=== PATIENT | female | born 1950 | race Caucasian/White ===

== ENCOUNTER → 2023-09-18 15:54 | Outpatient (REF) | payer MEDICARE, SELFPAY | LOC: HWRCS 15:54 | PROVIDERS: ATTENDING PHYSICIAN Internal Medicine Cardiovascular Disease; FAMILY PHYSICIAN Family Medicine | DX: I44.7 Left bundle-branch block, unspecified (principal); R00.2 Palpitations; I10 Essential (primary) hypertension | CPT/HCPCS: 93306 ==

== ENCOUNTER 2024-05-05 07:13 | Outpatient (RCR) | payer MEDICARE, SELFPAY | END 2024-05-05 23:59 | disposition home or self-care (01) | LOC: ROT 07:13 | PROVIDERS: ATTENDING PHYSICIAN Orthopaedic Surgery; FAMILY PHYSICIAN Family Medicine | DX: Z47.89 Encounter for other orthopedic aftercare (principal); M65.322 Trigger finger, left index finger; Z73.6 Limitation of activities due to disability | CPT/HCPCS: 97018; 97110; 97140; 97166; 97535 ==

== ENCOUNTER 2024-10-19 20:33 | Observation (INO) | payer MEDICARE, SELFPAY ==
[2024-10-19] VITALS (13 sets, daily range): BP systolic 121–155; BP diastolic 31–91; PULSE 63–66; BMI 36.3; BMI 34.8
[2024-10-19 13:54] LABS: % Basophils 0.9 % (0-2); % Eosinophils 2.8 % (0-6); % Immature Granulocytes 0.2 % (0-0.5); % Lymphocytes 48.6 % (20.5-51.1); % Monocytes 6.8 % (1.7-9.3); % Neutrophils 40.7 % (42.2-75.2); Absolute Basophils 0.1 10^3/uL (0-0.2); Absolute Eosinophils 0.2 10^3/uL (0-0.7); Absolute Lymphocytes 3.1 10^3/uL (1.2-3.4); Absolute Monocytes 0.4 10^3/uL (0.1-0.6); Absolute Neutrophils 2.6 10^3/uL (1.4-6.5); Hematocrit 40.1 % (37.0-47.0); Hemoglobin 13.4 g/dL (12.0-16.0); Mean Corp Hgb Conc. 33.4 g/dL (33.0-37.0); Mean Corpuscular Hgb 29.1 pg (27.0-31.0); Mean Platelet Volume 10.3 fL (7.4-10.4); Nucleated Red Blood Cells % 0 %; Platelet Count 258 10^3/uL (130-400); Red Blood Cell Count 4.61 10^6/uL (4.20-5.40); White Blood Cell Count 6.3 10^3/uL (4.8-10.8)
[2024-10-19 14:20] LABS: ALT (SGPT) 35 U/L (0-35); AST (SGOT) 32 U/L (14-36); Albumin 4.1 g/dl (3.5-5.0); Alkaline Phosphatase 84 U/L (38-126); Blood Urea Nitrogen 19 mg/dl (7-17); Calcium 9.7 mg/dl (8.4-10.2); Carbon Dioxide 28 mmol/L (22-30); Chloride 107 mmol/L (98-107); Glucose 138 mg/dl (70-99); Potassium 4.2 mmol/L (3.5-5.1); Sodium 141 mmol/L (135-145); Total Bilirubin 0.5 mg/dl (0.2-1.3); Total Protein 6.6 g/dl (6.3-8.2); eGFR > 60.00
--- NOTE | 2024-10-19 15:33 | ED.GENMED ---
History of Present Illness
General
Chief Complaint: Dizziness
Source: patient
Exam Limitations: none
Time Seen by Provider: 10/19/24 15:31
Nursing documentation reviewed up to this point in time: agreed with
History of Present Illness
History of Present Illness:
The patient is a pleasant 73-year-old female the past medical history of [id number] diabetes and high blood pressure who comes in with complains of 2 weeks of her balance being off. Patient reports that today she felt extremely dizzy and
symptoms are worse than ever before. Patient reports that she has to use a cane to walk which is very unusual for her. She denies acute vision changes and headache. She denies any episodes of passing out. Patient denies weakness and numbness.
Patient reports she has had vertigo in the past but this does not feel like vertigo
Past History
Past History
ED Past Medical History: HTN and NIDDM
ED Past Surgical History: Orthopedic
Social History
Tobacco: Non-smoker
Alcohol: Other
Drug: None
Personal:
Living: with family
Employment: Other
Family History
Family History: Other
Review of Systems
Review of Systems
Allergies reviewed?: Yes
All Other Systems: ROS reviewed and negative except as documented in HPI and ROS
Constitutional: Reports no symptoms
EENT: Reports no symptoms
Respiratory: Reports no symptoms
Cardiac: Reports no symptoms
ABD/GI: Reports no symptoms
: Reports no symptoms
Musculoskeletal: Reports no symptoms
Neurological: Reports dizzy
Endocrine: Reports no symptoms
Hematologic/Lymphatic: Reports no symptoms
Psychiatric: Reports no symptoms
Phy Exam
Physical Exam
Physical Exam:
Physical Exam
General: no apparent distress, not acutely ill
Neck: supple. no meningeal signs. normal psoterior pharynx
Heart: s1/s2 regular rate and rhythm, no murmur. equal radial pulses.
Lungs: no acute respiratory distress. clear bilaterally
Abdomen: normal bowel sounds. not tender. no CVAT
Neuro: alert and oriented. no focal neurological deficits. Normal finger-nose. 5 out of 5 strength in all extremities. Extraocular muscles intact
Skin: no rash
Psychiatric: well kept. interactive and cooperative
Extremities: no edema. no calf tenderness. negative homans. good distal pulses
Course
Orders/Labs/Results
Orders:
Orders
10/19/24 13:16
Electrocardiogram (*1) Urgent
Reason for Study: Chest Pain
EKG- Treatment ONCE
10/19/24 13:26
Complete Blood Count/With Diff Urgent
Comprehensive Metabolic Panel Urgent
10/19/24 15:47
Troponin I Urgent
10/19/24 16:28
CT Head W/o Iv Contrast Urgent
Comment:
Reason For Exam: dizziness
10/19/24 18:16
Urinalysis Reflex To Culture Urgent
Date Specimen was Collected: 10/19/24
Time Specimen was Collected: 18:15
Abnormal Lab Results
10/19/24
13:26
Neutrophils % 40.7 L %
(42.2-75.2)
BUN 19 H mg/dl
(7-17)
Glucose 138 H mg/dl
(70-99)
10/19/24 13:26
10/19/24 13:26
Vital Signs
Initial and Last Documented VS:
Initial Vital Signs
Temp Pulse Resp BP Pulse Ox
97.9 F 67 18 138/83 98
10/19/24 13:15 10/19/24 13:15 10/19/24 13:15 10/19/24 13:15 10/19/24 13:15
Last Documented Vital Signs
Temp Pulse Resp BP Pulse Ox
97.9 F 62 18 133/62 97
10/19/24 13:15 10/19/24 17:45 10/19/24 17:45 10/19/24 17:30 10/19/24 17:45
MDM/Problems Addressed
Differential Diagnosis Includes:
Acute on chronic vertigo, acute CVA, orthostatic dizziness
MDM/Problems Addressed:
Patient presents with subacute dizziness
Chronic conditions affecting care:
Vertigo
Acute Exacerbation and/or Progression of Chronic Illness:
Patient may have acute exacerbation of chronic vertigo
*Radiology
Radiology exam reviewed: radiology read reviewed
*Pulse Oximetry
Patient hypoxic: no
Comment: 98% on room air
*EKG
Interpreted by ED Provider?: Yes
Interpretation: abnormal
Comparison EKG: no comparison EKG present
Rate: normal
Rhythm: sinus
[place]: left axis deviation
Interval: normal interval
QRS Pattern: left bundle branch block
Ischemia: non-specific ST changes
*Executive Advisor Interpretation
Rate: normal
Interpretation: normal
Rhythm: sinus
*Critical Care Note
Total Time (30-74mins, 75-104mins- exclusive of procedures): Not Applicable
Data Reviewed
Review of Other/Old Records Reveals: Testing (Normal cardiac echo 2023)
Source: patient
Patient Management
Social determinants of health affecting care: Living situation and Strong social support
Escalation/DeEscalation of care consider admission/obs:
Patient expresses that her balance is way off and she has to use a cane which is extremely unusual for her. She reports this feels different than her typical vertigo. Additionally, there is no sign of orthostatic vital sign changes. Therefore, I
am concerned about possible stroke.
ED Attending Note
-
Portions of this chart may have been created with voice recognition software.� Occasional wrong word or��sound alike� substitutions may have occurred due to the inherent limitations of voice recognition software.
Discharge Plan
Departure
Patient Disposition: Admit
Date of Disposition: 10/19/24
Time of Disposition: 18:29
Admit to: Telemetry
Presentation/result/management discussed w/ accepting MD/DO: Hospitalist
Patient with high blood pressure during this ER visit?: Yes
Condition: Good
Covid-19: Not Applicable
Discharge Problem:
Acute dizziness
Referrals:
Valery Sylvester DO [Family Provider, Family Practice]
Interventions
Interventions:
*Risk Screen - Suicide Last Done: 10/19/24 14:54
*General Assessment Last Done: 10/19/24 14:54
*Neglect/Abuse Screening Last Done: 10/19/24 14:54
*ED- Fall Risk Assessment Last Done: 10/19/24 14:54
*ED COVID-19 Vaccine History Last Done: 10/19/24 14:54
ED- Neurological Assessment Last Done: 10/19/24 14:54
Discharge Date and Time
Print Language: DANISH
[2024-10-19 16:21] LABS: Troponin I < 0.012 ng/ml
[2024-10-19 18:21] LABS: Urine Albumin Negative (Neg - Trace); Urine Bilirubin Negative (Negative); Urine Character Clear (Clear); Urine Color Yellow; Urine Glucose Negative (Negative); Urine Ketone Negative (Negative); Urine Leukocyte Negative (Negative); Urine Nitrite Negative (Negative); Urine Occult Blood Negative (Negative); Urine Urobilinogen Negative (Neg - 1+)
--- NOTE | 2024-10-19 20:02 | HPS.HSE ---
Family Physician
-
Family Physician: Valery Sylvester
Chief Complaint
-
vertigo
History of Present Illness
73-year-old female past medical history of vertigo, diabetes, hypertension, left bundle branch block, anxiety, bipolar disorder, hypothyroidism, presenting with 2 weeks of dizziness. She describes the feeling as dizziness rather than vertigo which
she has had in the past attributed to BPPV which responded to Mili maneuver.
She states that the dizziness comes on when she gets up or walks around. Does not have any symptoms when she is sitting down. She had a little bit worsening symptoms with head movements but this is improved. She describes a head fullness but
denies any headache. She has chronic double vision. Denies ringing in the ears. Denies new blurry vision.
She complains of some tingling in her knees bilaterally with ambulation. Denies weakness in the legs.
Denies any new medications.
Denies smoking. Alcohol history. Denies drugs.
Medical History
Past Medical History
Past Medical History: Reports Other (vertigo, diabetes, hypertension, left bundle brach block anxiety, bipolar disorder, hypothyroidism,)
Past Surgical History: Reports None
Social History
Tobacco: Non-smoker
Alcohol: None
Drug: None
Family History
Family History: Not pertinent
Allergies / Home Medications
Allergies reflects when Allergies were last updated in [facility].
Home Medications with original date entered in [facility]
Allergy/Medication List:
Allergies
Allergy/AdvReac Type Severity Reaction Status Date / Time
No Known Allergies Allergy Unverified 12/08/22 22:09
Home Medications
ascorbic acid (vitamin C) 1,000 mg tablet 1,000 mg PO DAILY 10/19/24
aspirin 81 mg tablet 81 mg PO DAILY 10/19/24
calcium carbonate (Calcium 600) 600 mg PO DAILY 10/19/24
ezetimibe 10 mg tablet 10 mg PO DAILY 10/19/24
hydrochlorothiazide 50 mg tablet 50 mg PO DAILY 10/19/24
hydroxyzine pamoate 50 mg capsule 100 mg PO HS 10/19/24
lamotrigine 25 mg tablet 25 mg PO BID 10/19/24
levothyroxine 100 mcg tablet 100 mcg PO DAILY 10/19/24
melatonin 5 mg tablet 10 mg PO HS 10/19/24
metformin 500 mg tablet,extended release 24 hr 500 mg PO DAILY 10/19/24
metoprolol succinate 25 mg tablet,extended release 24 hr 25 mg PO DAILY 10/19/24
omega 8-nxa-ljf-fish oil 1,200 mg (144 mg-216 mg) capsule (Fish Oil) 1 cap PO DAILY 10/19/24
omeprazole 20 mg capsule,delayed release 20 mg PO DAILY 10/19/24
polyethylene glycol 3350 17 gram oral powder packet 17 g PO DAILY 10/19/24
quetiapine 400 mg tablet 400 mg PO HS 10/19/24
rosuvastatin 40 mg tablet 40 mg PO HS 10/19/24
therapeutic multivitamin 1 tab PO DAILY 10/19/24
trazodone 100 mg tablet 100 mg PO HS 10/19/24
Review of Systems
-
History Source: Patient
A 12 point ROS was completed and negative except as noted: Yes
Constitutional: Reports No Symptoms
EENT: Reports No Symptoms
Respiratory: Reports No Symptoms
Cardiac: Reports No Symptoms
Abdomen/GI: Reports No Symptoms
: Reports No Symptoms
Musculoskeletal: Reports No Symptoms
Skin: Reports No Symptoms
Neurological: Reports See HPI
Endocrine: Reports No Symptoms
Hematologic/Lymphatic: Reports No Symptoms
Psych: Reports No Symptoms
Physical Exam
Vital Signs
Vital Signs
Temp Pulse Resp BP Pulse Ox
98.1 F 63 20 141/31 98
10/19/24 19:33 10/19/24 19:33 10/19/24 19:33 10/19/24 19:33 10/19/24 19:33
Physical Exam
General: Well Developed, Well Nourished and No Apparent Distress
HEENT: NormoCephalic, Moist mucous membranes and Atraumatic
Respiratory: Clear
Cardiac: S1/S2 and Regular Rhythm; No Murmur or Rub
GI: Soft, Non Tender, Non Distended and Normal Bowel Sounds; No Organomegaly
Rectal: Deferred by Provider
Musculoskeletal: No Clubbing, No Cyanosis and No Edema
Skin: No Rash
Neuro: Nonfocal/grossly intact
Laboratory Results
-
10/19/24 13:26
10/19/24 13:26
Laboratory Results
Total Bilirubin 0.5 mg/dl (0.2-1.3) 10/19/24 13:26
AST 32 U/L (14-36) 10/19/24 13:26
ALT 35 U/L (0-35) 10/19/24 13:26
Alkaline Phosphatase 84 U/L (38-126) 10/19/24 13:26
Troponin I < 0.012 ng/ml 10/19/24 15:47
Data Reviewed
-
Lab Data: Labs Reviewed by me
Old Records: Reviewed
Impression/Plan
-
IMPRESSION:
PLAN:
# Disequilibrium suspect peripheral vertigo
-Patient has nystagmus with rightward gaze suggesting peripheral vertigo as the etiology
- CT head shows no acute abnormality
-EKG shows normal sinus rhythm, left bundle branch block,
- Urinalysis unremarkable
-Orthostatic vital signs negative
- Check TSH, B12,
-Check MRI brain
- Meclizine as needed
- Vestibular therapy
- Neurology
Type 2 diabetes
- Continue metformin
Essential hypertension
- Continue metoprolol, hydrochlorothiazide
Left bundle branch block
Anxiety/bipolar disorder
- Continue Lamictal, Seroquel, hydroxyzine
Hypercholesterolemia
- Continue statin, Zetia
Hypothyroidism
- Continue levothyroxine
Insomnia
- Continue trazodone,
Full code
DVT prophylaxis�SCDs
Regular diet
--- NOTE | 2024-10-19 22:00 | PTCARENOTE ---
Received patient from ED via stretcher. Patient ambulated from stretcher to bed x2 assist. AAOx3, reports dizziness at times when OOB. Denies pain. Oriented patient to room and placed call villagomez within reach.
[2024-10-19] MEDS: MELATONIN 10 MG PO (22:52)
[2024-10-19] MEDS: CRESTOR 40 MG PO (22:53)
[2024-10-19] MEDS: DESYREL 100 MG PO (22:53)
[2024-10-19] MEDS: ATARAX 50 MG PO (22:53)
[2024-10-19] MEDS: SEROQUEL 400 MG PO (22:54)
[2024-10-20] VITALS (7 sets, daily range): BP systolic 114–142; BP diastolic 41–66; PULSE 67
[2024-10-20 00:02] LABS: TSH 0.12 uIU/ml (0.47-4.68)
[2024-10-20 00:21] LABS: Vitamin B12 586 pg/ml (239-931)
[2024-10-20 03:53] LABS: Amphetamines Negative (Negative); Barbiturates Negative (Negative); Benzodiazepines Negative (Negative); Buprenorphine Negative (Negative); Cocaine Negative (Negative); Marijuana Negative (Negative); Methadone Negative (Negative); Methamphetamines Negative (Negative); Opiates Negative (Negative); Phencyclidine Negative (Negative); Tricyclic Antidepressants Positive (Negative)
[2024-10-20] MEDS: PROTONIX 40 MG PO (06:21)
[2024-10-20] MEDS: SYNTHROID 100 MCG PO (06:21)
--- NOTE | 2024-10-20 07:10 | CON.NEURO ---
Consultation
Order
Date of Consultation: 10/20/24
Requesting Provider: Sj Prado MD
Reason for Consult: Disequilibrium
Neurology Consultation Note.
HPI: This is a 73-year-old right-handed woman who presented to [facility] on 10/19/2024 with 2-week history of imbalance.
The patient reports feeling very dizzy when getting up and walking around, with a sensation of her head feeling 'stuffed with cotton' and a fear of falling.
The symptoms are worse with standing up, turning and ambulation.
Within the last two months, Ms. Coto has fallen three times due to imbalance, including stumbling in bedclothes and falling while getting up at night. Each fall resulted in head trauma with no loss of consciousness. No reports No reports of
abnormal movements, headaches, fever, nasal congestion, ear pain sensory symptoms in the feet, cognitive symptoms. She started using a cane over the last 2 weeks due to imbalance. No recently started to discontinued medications
Ms. Coto reports a long-standing history of double vision, which she attributes to a fall in [place] where she hit her head. She currently uses prism glasses.
ER VS: 138/83-155/59, 67, afebrile
EKG: NSR, QTc Int : 482 ms
PDMP:none
Labs: Glucose�132, normal hemoglobin, WBCs.
CT head wo contrast�unremarkable
Brain MRI without gadolinium (10/20/2024)�no acute abnormalities.
PMH: HTN, DLP, DM, hypothyroidism, BPPV, bipolar disorder, insomnia
PSH: Trigger finger surgeries, lumbar laminectomy, bilateral CTS,
SH: , has 2 children, independent in ADLs, former smoker, no history of excessive alcohol use; former head of ict and teacher, currently works as a retail operations specialist
FH: Mother�mood disorder, father�rectal cancer
All:NKDA
ROS: Constitutional: Negative. Negative for chills, fever and unexpected weight change.
HENT: Positive for tinnitus
Eyes: Positive for chronic diplopia
Respiratory: Negative for cough, choking and shortness of breath.
Cardiovascular: Negative for chest pain, palpitations and leg swelling.
Gastrointestinal: Negative for abdominal pain and vomiting.
Endocrine: Negative. Negative for cold intolerance.
Genitourinary: Negative for dysuria, flank pain and urgency.
Musculoskeletal: Negative for back pain, gait problem, neck pain and neck stiffness.
Skin: Negative for rash.
Allergic/Immunologic: Negative. Negative for immunocompromised state.
Neurological: Positive for falls, imbalance, dizziness
Psychiatric/Behavioral: Positive for intermittent insomnia
General: Well developed. In no acute distress.
Cardio: Regular rate and rhythm without murmur. Extremities are without cyanosis or edema.
Neuro:
Mental Status: Alert, oriented to person, place, and date. Normal attention and recall. Good fund of knowledge. Follows complex requests across the midline. Comprehension, naming, and repetition intact. Immediate recall 3/3.
Cranial Nerves: Pupils are equally round and reactive to light. EOMs full. Visual carson full to confrontation. No ptosis. No nystagmus. V1-V3 intact to light touch and pinprick bilaterally, symmetric. Face symmetric. Normal hearing AU. The
palate elevated well. SCMs and traps 5/5. Tongue midline. No dysarthria.
Motor: Normal bulk and tone. No pronator or arm drift. Strength 5/5 throughout. No clonus.
Reflexes: 1+ throughout the upper extremities and trace knees. Plantar responses flexor bilaterally.
Sensory: Normal vibration at toes
Coordination: No dysmetria or tremor.
Gait: deferred
Assessment and Plan:
I. Probable BPPV
II Chronic diplopia, likely posttraumatic.
III. HTN
-Continue Telemetry monitoring
-Strict blood pressure control
-Please obtain orthostatic vital sign
-Meclizine 25 mg every 8 hours as needed
-ENT consult (can be done as outpatient)
-PT.
-DVT prophylaxis.
-Please recall neurology service with any questions or concerns
I personally reviewed all radiology and labs along with past medical records pertinent to current medical problems. Total time spent in patient care is 60 minutes.
Thank you for allowing us to participate in the care of this patient. We will continue to follow. Please do not hesitate to contact us with any questions or concerns.
Subjective/Objective
Subjective Data
Date of Service: October 20, 2024
Objective Data
Vital Signs
Temp Pulse Resp BP Pulse Ox
36.8 C 66 18 142/59 95
10/20/24 03:21 10/20/24 03:21 10/20/24 03:21 10/20/24 03:21 10/20/24 03:21
Sodium 141 mmol/L (135-145) 10/19/24 13:26
Potassium 4.2 mmol/L (3.5-5.1) 10/19/24 13:26
BUN 19 mg/dl (7-17) H 10/19/24 13:26
Glucose 138 mg/dl (70-99) H 10/19/24 13:26
Calcium 9.7 mg/dl (8.4-10.2) 10/19/24 13:26
Vitamin B12 586 pg/ml (239-931) 10/19/24 13:26
Ur Buprenorphine Negative (Negative) 10/20/24 03:35
Patient Allergies
No Known Allergies Allergy (Unverified 12/08/22 22:09)
Medications
-
Active Medications
Generic Name Dose Route Start Last Admin
Trade Name Freq PRN Reason Stop Dose Admin
Ascorbic Acid 1,000 mg 10/20/24 08:00
Ascorbic Acid 500 Mg Tablet PO 11/17/24 07:59
DAILY TORSTEN
Aspirin 81 mg 10/20/24 08:00
Aspirin 81 Mg (Enteric Coated) Tablet PO 11/17/24 07:59
DAILY TORSTEN
Calcium Carbonate 500 mg 10/20/24 08:00
Calcium Carbonate 500 Mg Tablet PO 11/17/24 07:59
DAILY TORSTEN
Ezetimibe 10 mg 10/20/24 08:00
Ezetimibe (Zetia) 10 Mg Tablet PO 11/17/24 07:59
DAILY TORSTEN
Hydrochlorothiazide 50 mg 10/20/24 08:00
Hydrochlorothiazide 50 Mg Tablet PO 11/17/24 07:59
DAILY TORSTEN
Hydroxyzine HCl 50 mg 10/19/24 23:00 10/19/24 22:53
Hydroxyzine 25 Mg Tablet PO 11/16/24 22:59 50 mg
HS TORSTEN Administration
Lamotrigine 25 mg 10/20/24 08:00
Lamotrigine 25 Mg Chewable Tablet PO 11/17/24 07:59
BID TORSTEN
Levothyroxine Sodium 100 mcg 10/20/24 06:00 10/20/24 06:21
Levothyroxine 100 Mcg Tablet PO 11/17/24 05:59 100 mcg
DAILY@0600 TORSTEN Administration
Meclizine HCl 12.5 mg 10/19/24 21:27
Meclizine 12.5 Mg Tablet PO 11/16/24 21:26
Q8HPRN PRN
vetigo
Melatonin 10 mg 10/19/24 22:00 10/19/24 22:52
Melatonin 5 Mg Tablet PO 11/16/24 21:59 10 mg
HS TORSTEN Administration
Metformin HCl 500 mg 10/20/24 08:00
Metformin 500 Mg Extended Release Tablet PO 11/17/24 07:59
DAILY TORSTEN
Metoprolol Succinate 25 mg 10/20/24 08:00
Metoprolol 25 Mg Extended Release Tablet PO 11/17/24 07:59
DAILY TORSTEN
Multivitamins Therapeutic 1 tablet 10/20/24 08:00
Multivitamin Tablet PO 11/17/24 07:59
DAILY TORSTEN
Pantoprazole Sodium 40 mg 10/20/24 07:00 10/20/24 06:21
Pantoprazole 40 Mg Delayed Release Tablet PO 11/17/24 06:59 40 mg
DAILY AT 0700 TORSTEN Administration
Polyethylene Glycol 17 grams 10/20/24 08:00
Polyethylene Glycol Powder 17 Grams Packet PO 11/17/24 07:59
DAILY TORSTEN
Quetiapine Fumarate 400 mg 10/19/24 22:00 10/19/24 22:54
Quetiapine 100 Mg Tablet PO 11/16/24 21:59 400 mg
HS TORSTEN Administration
Rosuvastatin Calcium 40 mg 10/19/24 22:00 10/19/24 22:53
Rosuvastatin (Crestor) 40 Mg Tablet PO 11/16/24 21:59 40 mg
HS TORSTEN Administration
Sodium Chloride 0 flush 10/19/24 23:00
Sodium Chloride 0.9% (Flush) Syringe IV 11/16/24 22:59
PER PROTOCOL TORSTEN
Trazodone HCl 100 mg 10/19/24 22:00 10/19/24 22:53
Trazodone 100 Mg Tablet PO 11/16/24 21:59 100 mg
HS TORSTEN Administration
Home Medications
�Medication �Instructions �Recorded
ascorbic acid (vitamin C) 1,000 mg 1,000 mg PO DAILY 10/19/24
tablet
aspirin 81 mg tablet 81 mg PO DAILY 10/19/24
calcium carbonate (Calcium 600) 600 mg PO DAILY 10/19/24
ezetimibe 10 mg tablet 10 mg PO DAILY 10/19/24
hydrochlorothiazide 50 mg tablet 50 mg PO DAILY 10/19/24
hydroxyzine pamoate 50 mg capsule 50 mg PO HS 10/19/24
lamotrigine 25 mg tablet 25 mg PO BID 10/19/24
levothyroxine 100 mcg tablet 100 mcg PO DAILY 10/19/24
melatonin 5 mg tablet 10 mg PO HS 10/19/24
metformin 500 mg tablet,extended 500 mg PO DAILY 10/19/24
release 24 hr
metoprolol succinate 25 mg 25 mg PO DAILY 10/19/24
tablet,extended release 24 hr
omega 6-oot-yhh-fish oil 1,200 mg 1 cap PO DAILY 10/19/24
(144 mg-216 mg) capsule (Fish Oil)
omeprazole 20 mg capsule,delayed 20 mg PO DAILY 10/19/24
release
polyethylene glycol 3350 17 gram 17 g PO DAILY 10/19/24
oral powder packet
quetiapine 400 mg tablet 400 mg PO HS 10/19/24
rosuvastatin 40 mg tablet 40 mg PO HS 10/19/24
therapeutic multivitamin 1 tab PO DAILY 10/19/24
trazodone 100 mg tablet 100 mg PO HS 10/19/24
Vital Signs and Labs
-
Vital Signs and Labs:
Vital Signs
Temp Pulse Resp BP Pulse Ox
36.5 C 60 18 114/41 96
10/20/24 08:25 10/20/24 08:52 10/20/24 08:25 10/20/24 08:52 10/20/24 09:58
Lab Results
10/20/24 06:53
10/20/24 06:53
Sodium 141 mmol/L (135-145) 10/20/24 06:53
Potassium 3.9 mmol/L (3.5-5.1) 10/20/24 06:53
BUN 18 mg/dl (7-17) H 10/20/24 06:53
Glucose 132 mg/dl (70-99) H 10/20/24 06:53
Calcium 9.7 mg/dl (8.4-10.2) 10/20/24 06:53
Vitamin B12 586 pg/ml (239-931) 10/19/24 13:26
Ur Buprenorphine Negative (Negative) 10/20/24 03:35
Medications
-
Medications:
Generic Name Dose Route Start Last Admin
Trade Name Freq PRN Reason Stop Dose Admin
Ascorbic Acid 1,000 mg 10/20/24 08:00 10/20/24 08:52
Ascorbic Acid 500 Mg Tablet PO 11/17/24 07:59 1,000 mg
DAILY TORSTEN Administration
Aspirin 81 mg 10/20/24 08:00 10/20/24 08:52
Aspirin 81 Mg (Enteric Coated) Tablet PO 11/17/24 07:59 81 mg
DAILY TORSTEN Administration
Calcium Carbonate 500 mg 10/20/24 08:00 10/20/24 08:53
Calcium Carbonate 500 Mg Tablet PO 11/17/24 07:59 500 mg
DAILY TORSTEN Administration
Ezetimibe 10 mg 10/20/24 08:00 10/20/24 08:52
Ezetimibe (Zetia) 10 Mg Tablet PO 11/17/24 07:59 10 mg
DAILY TORSTEN Administration
Hydrochlorothiazide 50 mg 10/20/24 08:00 10/20/24 08:53
Hydrochlorothiazide 50 Mg Tablet PO 11/17/24 07:59 50 mg
DAILY TORSTEN Administration
Hydroxyzine HCl 50 mg 10/19/24 23:00 10/19/24 22:53
Hydroxyzine 25 Mg Tablet PO 11/16/24 22:59 50 mg
HS TORSTEN Administration
Lamotrigine 25 mg 10/20/24 08:00 10/20/24 08:52
Lamotrigine 25 Mg Chewable Tablet PO 11/17/24 07:59 25 mg
BID TORSTEN Administration
Levothyroxine Sodium 100 mcg 10/20/24 06:00 10/20/24 06:21
Levothyroxine 100 Mcg Tablet PO 11/17/24 05:59 100 mcg
DAILY@0600 TORSTEN Administration
Meclizine HCl 12.5 mg 10/19/24 21:27 10/20/24 08:52
Meclizine 12.5 Mg Tablet PO 11/16/24 21:26 12.5 mg
Q8HPRN PRN Administration
vetigo
Melatonin 10 mg 10/19/24 22:00 10/19/24 22:52
Melatonin 5 Mg Tablet PO 11/16/24 21:59 10 mg
HS TORSTEN Administration
Metformin HCl 500 mg 10/20/24 08:00 10/20/24 08:52
Metformin 500 Mg Extended Release Tablet PO 11/17/24 07:59 500 mg
DAILY TORSTEN Administration
Metoprolol Succinate 25 mg 10/20/24 08:00 10/20/24 08:52
Metoprolol 25 Mg Extended Release Tablet PO 11/17/24 07:59 25 mg
DAILY TORSTEN Administration
Multivitamins Therapeutic 1 tablet 10/20/24 08:00 10/20/24 08:52
Multivitamin Tablet PO 11/17/24 07:59 1 tablet
DAILY TORSTEN Administration
Pantoprazole Sodium 40 mg 10/20/24 07:00 10/20/24 06:21
Pantoprazole 40 Mg Delayed Release Tablet PO 11/17/24 06:59 40 mg
DAILY AT 0700 TORSTEN Administration
Polyethylene Glycol 17 grams 10/20/24 08:00 10/20/24 08:50
Polyethylene Glycol Powder 17 Grams Packet PO 11/17/24 07:59 Not Given
DAILY TORSTEN
Quetiapine Fumarate 400 mg 10/19/24 22:00 10/19/24 22:54
Quetiapine 100 Mg Tablet PO 11/16/24 21:59 400 mg
HS TORSTEN Administration
Rosuvastatin Calcium 40 mg 10/19/24 22:00 10/19/24 22:53
Rosuvastatin (Crestor) 40 Mg Tablet PO 11/16/24 21:59 40 mg
HS TORSTEN Administration
Sodium Chloride 0 flush 10/19/24 23:00
Sodium Chloride 0.9% (Flush) Syringe IV 11/16/24 22:59
PER PROTOCOL TORSTEN
Trazodone HCl 100 mg 10/19/24 22:00 10/19/24 22:53
Trazodone 100 Mg Tablet PO 11/16/24 21:59 100 mg
HS TORSTEN Administration
Home Medications
-
Home Medications
ascorbic acid (vitamin C) 1,000 mg tablet 1,000 mg PO DAILY 10/19/24
aspirin 81 mg tablet 81 mg PO DAILY 10/19/24
calcium carbonate (Calcium 600) 600 mg PO DAILY 10/19/24
ezetimibe 10 mg tablet 10 mg PO DAILY 10/19/24
hydrochlorothiazide 50 mg tablet 50 mg PO DAILY 10/19/24
hydroxyzine pamoate 50 mg capsule 50 mg PO HS 10/19/24
lamotrigine 25 mg tablet 25 mg PO BID 10/19/24
levothyroxine 100 mcg tablet 100 mcg PO DAILY 10/19/24
melatonin 5 mg tablet 10 mg PO HS 10/19/24
metformin 500 mg tablet,extended release 24 hr 500 mg PO DAILY 10/19/24
metoprolol succinate 25 mg tablet,extended release 24 hr 25 mg PO DAILY 10/19/24
omega 9-xza-kfq-fish oil 1,200 mg (144 mg-216 mg) capsule (Fish Oil) 1 cap PO DAILY 10/19/24
omeprazole 20 mg capsule,delayed release 20 mg PO DAILY 10/19/24
polyethylene glycol 3350 17 gram oral powder packet 17 g PO DAILY 10/19/24
quetiapine 400 mg tablet 400 mg PO HS 10/19/24
rosuvastatin 40 mg tablet 40 mg PO HS 10/19/24
therapeutic multivitamin 1 tab PO DAILY 10/19/24
trazodone 100 mg tablet 100 mg PO HS 10/19/24
[2024-10-20 07:28] LABS: % Basophils 0.8 % (0-2); % Eosinophils 2.9 % (0-6); % Immature Granulocytes 0.3 % (0-0.5); % Lymphocytes 49.9 % (20.5-51.1); % Monocytes 7.3 % (1.7-9.3); % Neutrophils 38.8 % (42.2-75.2); Absolute Basophils 0.1 10^3/uL (0-0.2); Absolute Eosinophils 0.2 10^3/uL (0-0.7); Absolute Lymphocytes 3.7 10^3/uL (1.2-3.4); Absolute Monocytes 0.5 10^3/uL (0.1-0.6); Absolute Neutrophils 2.9 10^3/uL (1.4-6.5); Hematocrit 39.1 % (37.0-47.0); Hemoglobin 13.2 g/dL (12.0-16.0); Mean Corp Hgb Conc. 33.8 g/dL (33.0-37.0); Mean Corpuscular Hgb 29.5 pg (27.0-31.0); Mean Corpuscular Volume 87.5 fL (81.0-99.0); Mean Platelet Volume 10.3 fL (7.4-10.4); Nucleated Red Blood Cells % 0 %; Platelet Count 244 10^3/uL (130-400); Red Blood Cell Count 4.47 10^6/uL (4.20-5.40); Red Cell Dist. Width 12.9 % (11.5-14.5); White Blood Cell Count 7.4 10^3/uL (4.8-10.8)
[2024-10-20 08:01] LABS: ALT (SGPT) 39 U/L (0-35); AST (SGOT) 34 U/L (14-36); Alkaline Phosphatase 90 U/L (38-126); Blood Urea Nitrogen 18 mg/dl (7-17); Calcium 9.7 mg/dl (8.4-10.2); Carbon Dioxide 29 mmol/L (22-30); Chloride 105 mmol/L (98-107); Creatine Phosphokinase 37 U/L (30-135); Estimated Creatinine Clearance 60 ml/min; Glucose 132 mg/dl (70-99); Potassium 3.9 mmol/L (3.5-5.1); Sodium 141 mmol/L (135-145); Total Bilirubin 0.5 mg/dl (0.2-1.3); Total Protein 6.6 g/dl (6.3-8.2); eGFR > 60.00
[2024-10-20] MEDS: MIRALAX PO (08:50)
[2024-10-20] MEDS: ANTIVERT 12.5 MG PO ×2 (08:52→22:38)
[2024-10-20] MEDS: GLUCOPHAGE XR EXTENDED RELEASE 500 MG PO (08:52)
[2024-10-20] MEDS: ASPIR LOW (ENTERIC COATED) 81 MG PO (08:52)
[2024-10-20] MEDS: ZETIA 10 MG PO (08:52)
[2024-10-20] MEDS: TOPROL XL 25 MG PO (08:52)
[2024-10-20] MEDS: THERAGRAN 1 TABLET PO (08:52)
[2024-10-20] MEDS: VITAMIN C 1000 MG PO (08:52)
[2024-10-20] MEDS: LAMICTAL 25 MG PO ×2 (08:52→19:56)
[2024-10-20] MEDS: OSCAL CAL 500 500 MG PO (08:53)
[2024-10-20] MEDS: ORETIC 50 MG PO (08:53)
--- NOTE | 2024-10-20 13:30 | CM ---
Patient seen bedside w/ spouse, initial assessment completed. Patient is a 73-year-old female past medical history of vertigo, diabetes, hypertension, left bundle branch block, anxiety, bipolar disorder, hypothyroidism, presenting with 2 weeks of
dizziness.
Patient resides w/ spouse and their adult daughter in a single story rancher style home, 1 step to enter. Patient was prev independent w/ ambulating, however, she shared the recent need of a cane due to vertigo. Has additional grab bar and shower
chair in the bathroom. Denies SNF/HC hx. Patient has engaged in OP therapy on and off for the past 3 years for vertigo. Patient not current as her current script expires this week.
Address, point of contact and insurance verified
PCP: Valery Sylvester
Pharmacy: [facility]
Patient admitted obs. DOSHI form verbally reviewed, copy provided, copy on chart
CM consulted for advanced directive, patient and spouse agreeable, paperwork provided
Therapy assessed patient, rec OP vertigo rehab/therapy at d/c. Patient will need script
Plan: Home w/ OP therapy
--- NOTE | 2024-10-20 13:37 | W.PN.HOSP.TC ---
Today's Communication/Plan
-
Assessment / Plan
Assessment / Plan
General: No Apparent Distress, Comfortable and Conversant
HEENT: NormoCephalic, Moist mucous membranes, Atraumatic
Respiratory: Clear and Non Labored Respirations
Cardiac: S1/S2 and Regular Rhythm; No Rub or Gallop
GI: Soft, Non Tender, Non Distended and Normal Bowel Sounds
Musculoskeletal: No Edema, no deformity
Skin: Warm and dry
: NO Maria
Neuro: Awake, Alert, Nonfocal/grossly intact, no nystagmus
Psych: Calm and Intact Judgment/Insight
Ms. Coto is a 73-year-old female with medical history of peripheral vertigo, bipolar disorder, LBBB, hypertension, and hypothyroidism who presented with 2 weeks of dizziness. She reports her current symptoms as feeling like her head is fuzzy and
full of cotton and she has trouble balancing, does not feel as if the room is spinning which has been the case with prior episode of vertigo which responded to Mili maneuver. Her symptoms are aggravated by standing and ambulating and resolve when
sitting or lying down. She denies headaches or hearing changes. She has chronic double vision for which she wears prism lenses. No acute vision changes. She has been admitted for further evaluation and management.
Dizziness:
- Received vestibular therapy including Mili maneuver this morning 10/20, does not appear to have nystagmus after therapy
- MRI brain shows no acute abnormality
- Will continue meclizine as needed
- To be evaluated by neurology
- Suspect presenting symptoms are due to peripheral vertigo in which case we will continue supportive care with meclizine and vestibular therapy
Mxf-xuahgjv-cpyreujgh diabetes mellitus:
- Continue home metformin
Hypertension:
- Continue HCTZ 50 mg daily and metoprolol succinate 25 mg daily
Hypothyroidism:
- Continue levothyroxine 100 mcg daily
Bipolar disorder:
- Stable
- Continue home Lamictal and Seroquel
DVT prophylaxis: SCDs
CODE STATUS: Full code
Total time spent on today's encounter was 35 minutes
Anticipated Discharge: 24 - 48 hours
Subjective/Interval History
-
Date of Service: October 20, 2024
Patient was seen and examined at bedside this morning. Mild dizziness after completing vestibular therapy. Awaiting MRI brain.
Objective Data
-
Labs:
Laboratory Results
10/20/24
06:53
WBC 7.4
Hgb 13.2
Hct 39.1
Plt Count 244
Sodium 141
Potassium 3.9
Chloride 105
Carbon Dioxide 29
BUN 18 H
Creatinine 0.8
Glucose 132 H
Calcium 9.7
Total Bilirubin 0.5
AST 34
ALT 39 H
Alkaline Phosphatase 90
Vital Signs:
Vital Signs
Temp Pulse Resp BP Pulse Ox
97.9 F 63 18 122/56 96
10/20/24 11:00 10/20/24 11:00 10/20/24 11:00 10/20/24 11:00 10/20/24 11:00
I&O
10/19/24 10/20/24 10/21/24
06:59 06:59 06:59
Intake Total 480 / 480
Output Total 350 / 350
Balance -350 / -350 480 / 480
Review of Systems
-
History Source: Patient
All other systems: Reviewed and negative
Neuro: Reports Dizzy
Physical Exam
-
General: No Apparent Distress
[2024-10-20] MEDS: CRESTOR 40 MG PO (19:53)
[2024-10-20] MEDS: ATARAX 50 MG PO (19:53)
[2024-10-20] MEDS: DESYREL 100 MG PO (19:53)
[2024-10-20] MEDS: MELATONIN 10 MG PO (19:55)
[2024-10-20] MEDS: SEROQUEL 400 MG PO (19:55)
[2024-10-20 22:08] LABS: Hepatitis C Antibody Negative (Negative)
[2024-10-21 03:45] VITALS: BP 135/56
[2024-10-21] MEDS: SYNTHROID 100 MCG PO (05:39)
[2024-10-21 07:50] VITALS: BP 132/50
[2024-10-21] MEDS: PROTONIX 40 MG PO (08:11)
[2024-10-21] MEDS: LAMICTAL 25 MG PO (08:11)
[2024-10-21] MEDS: TOPROL XL 25 MG PO (08:12)
[2024-10-21] MEDS: ORETIC 50 MG PO (08:12)
[2024-10-21] MEDS: ASPIR LOW (ENTERIC COATED) 81 MG PO (08:12)
[2024-10-21] MEDS: OSCAL CAL 500 500 MG PO (08:12)
[2024-10-21] MEDS: GLUCOPHAGE XR EXTENDED RELEASE 500 MG PO (08:12)
[2024-10-21] MEDS: ZETIA 10 MG PO (08:12)
[2024-10-21] MEDS: VITAMIN C 1000 MG PO (08:12)
[2024-10-21] MEDS: THERAGRAN 1 TABLET PO (08:12)
[2024-10-21] MEDS: MIRALAX 17 GRAMS PO (08:14)
[2024-10-21] MEDS: ANTIVERT 12.5 MG PO (08:19)
[2024-10-21 08:45] VITALS: BP 121/67; BP 138/57; BP 144/64; PULSE 66; PULSE 69; PULSE 72
[2024-10-21 11:35] VITALS: BP 125/65
--- NOTE | 2024-10-21 12:03 | CM ---
Per hospitalist, patient for d/c today.
Will need OP vestibular therapy, made hospitalist aware of script needed
No other CM needs identified at this time
Plan: Home w/ OP therapy
--- NOTE | 2024-10-21 12:09 | W.DCSUMMARY ---
Discharge Summary
Discharge Data
Date of Admission: 10/19/24
Date of Discharge: 10/21/24
Total time spent discharging patient (in min): 40
-
Pending Results: No
Hospital Course
Ms. Coto is a 73-year-old female with medical history of peripheral vertigo, bipolar disorder, LBBB, hypertension, and hypothyroidism who presented with 2 weeks of dizziness. She reported her symptoms as feeling like her head was fuzzy and full
of cotton and she had trouble balancing. She did not feel as if the room is spinning which has been the case with prior episode of vertigo which responded to Mili maneuver. Her symptoms are aggravated by standing and ambulating and resolve when
sitting or lying down. She denied headaches or hearing changes. She has chronic double vision for which she wears prism lenses. No acute vision changes. She was admitted for further evaluation and management.
She received vestibular therapy including Mili maneuver on the morning of 10/20 with subsequent resolution of her symptoms. MRI of her brain showed no acute abnormalities. Her blood pressure remained well-controlled. She had no significant lab
abnormalities. She was evaluated by neurology who recommended outpatient ENT evaluation. She will be discharged to home with outpatient physical therapy and vestibular therapy. She should follow-up with her primary care physician and with ENT.
She can continue taking meclizine as needed for symptom control.
General: No Apparent Distress, Comfortable and Conversant
HEENT: NormoCephalic, Moist mucous membranes, Atraumatic
Respiratory: Clear and Non Labored Respirations
Cardiac: S1/S2 and Regular Rhythm; No Rub or Gallop
GI: Soft, Non Tender, Non Distended and Normal Bowel Sounds
Musculoskeletal: No Edema, no deformity
Skin: Warm and dry
: NO Maria
Neuro: Awake, Alert, Nonfocal/grossly intact, no nystagmus
Psych: Calm and Intact Judgment/Insight
Discharge Plan
-
Patient Disposition: Home (Routine Discharge)
Discharge Diagnosis/Procedures: BPPV
Diet: No restrictions
Activity: No restrictions
Activity Restrictions/Additional Instructions:
Ms. Coto is a 73-year-old female with medical history of peripheral vertigo, bipolar disorder, LBBB, hypertension, and hypothyroidism who presented with 2 weeks of dizziness. She reported her symptoms as feeling like her head was fuzzy and full
of cotton and she had trouble balancing. She did not feel as if the room is spinning which has been the case with prior episode of vertigo which responded to Mili maneuver. Her symptoms are aggravated by standing and ambulating and resolve when
sitting or lying down. She denied headaches or hearing changes. She has chronic double vision for which she wears prism lenses. No acute vision changes. She was admitted for further evaluation and management.
She received vestibular therapy including Mili maneuver on the morning of 10/20 with subsequent resolution of her symptoms. MRI of her brain showed no acute abnormalities. Her blood pressure remained well-controlled. She had no significant lab
abnormalities. She was evaluated by neurology who recommended outpatient ENT evaluation. She will be discharged to home with outpatient physical therapy and vestibular therapy. She should follow-up with her primary care physician and with ENT.
She can continue taking meclizine as needed for symptom control.
Referrals:
Valery Sylvester DO [Family Provider, Family Practice]
Prescriptions:
New
meclizine 12.5 mg Tablet
12.5 mg PO Q8HPRN PRN (Reason: vetigo) Qty: 15 0RF
Continued
ascorbic acid (vitamin C) 1,000 mg Tablet
1,000 mg PO DAILY
polyethylene glycol 3350 17 gram Powder In Packet
17 g PO DAILY
hydrochlorothiazide 50 mg tablet
50 mg PO DAILY
therapeutic multivitamin Tablet
1 tab PO DAILY
lamotrigine 25 mg tablet
25 mg PO BID
levothyroxine 100 mcg tablet
100 mcg PO DAILY
calcium carbonate [Calcium 600] 600 mg calcium (1,500 mg) Tablet
600 mg PO DAILY
omeprazole 20 mg capsule,delayed release(DR/EC)
20 mg PO DAILY
metoprolol succinate 25 mg tablet extended release 24 hr
25 mg PO DAILY
metformin 500 mg tablet extended release 24 hr
500 mg PO DAILY
ezetimibe 10 mg tablet
10 mg PO DAILY
rosuvastatin 40 mg tablet
40 mg PO HS
quetiapine 400 mg tablet
400 mg PO HS
melatonin 5 mg Tablet
10 mg PO HS
omega 1-drl-lhs-fish oil [Fish Oil] 1,200 (144-216) mg Capsule
1 cap PO DAILY
hydroxyzine pamoate 50 mg capsule
50 mg PO HS
Patient Comments:
patient thinks she is taking two 25mg tabs at bedtime, even though pharmacy shows 50mg tabs filled.
trazodone 100 mg tablet
100 mg PO HS
Patient Comments:
patient thinks she is taking 50mg tabs, even though 100mg tabs are being filled by pharmacy
aspirin 81 mg Tablet
81 mg PO DAILY
Discharge Orders:
Discharge Patient (As Directed); Ordered 10/21/24
Ordered By: New Tinsley
Discharge Date and Time
Print Language: [id number]
== END 2024-10-21 13:03 | disposition home or self-care (01) ==
LOC: 4 EAST ACU 20:33
PROVIDERS: Emergency Medicine; ADMITTING PHYSICIAN Hospitalist; ATTENDING PHYSICIAN Internal Medicine; EMERGENCY PHYSICIAN Emergency Medicine; FAMILY PHYSICIAN Family Medicine; OTHER PHYSICIAN Psychiatry & Neurology Neurology
DX: R42 Dizziness and giddiness (principal); R07.9 Chest pain, unspecified; H53.2 Diplopia; E11.9 Type 2 diabetes mellitus without complications; I10 Essential (primary) hypertension; Z79.84 Long term (current) use of oral hypoglycemic drugs; Z79.899 Other long term (current) drug therapy; F31.9 Bipolar disorder, unspecified; F41.9 Anxiety disorder, unspecified; E78.00 Pure hypercholesterolemia, unspecified; E03.9 Hypothyroidism, unspecified; G47.00 Insomnia, unspecified; Z79.82 Long term (current) use of aspirin; Z79.890 Hormone replacement therapy; Z87.891 Personal history of nicotine dependence
CPT/HCPCS: 70450; 70551; 80053; 80306; 81003; 82550; 82607; 84443; 84484; 85025; 86803; 93005; 97112; 97116; 97163; 99285; G0378

== ENCOUNTER 2024-11-03 13:09 | Outpatient (RCR) | payer MEDICARE, SELFPAY | END 2024-11-03 23:59 | disposition home or self-care (01) | LOC: RPT 13:09 | PROVIDERS: FAMILY PHYSICIAN Family Medicine | DX: H81.10 Benign paroxysmal vertigo, unspecified ear (principal); Z73.6 Limitation of activities due to disability | CPT/HCPCS: 97112; 97162 ==

== ENCOUNTER 2024-11-27 13:21 | Outpatient (RCR) | payer MEDICARE, SELFPAY | END 2024-11-27 23:59 | disposition home or self-care (01) | LOC: RPT 13:21 | PROVIDERS: ATTENDING PHYSICIAN Family Medicine | DX: H81.10 Benign paroxysmal vertigo, unspecified ear (principal); H81.11 Benign paroxysmal vertigo, right ear (principal); Z73.6 Limitation of activities due to disability; R26.89 Other abnormalities of gait and mobility | CPT/HCPCS: 97112 ==

== ENCOUNTER 2024-12-09 15:25 | Outpatient (RCR) | payer MEDICARE, SELFPAY | END 2024-12-09 23:59 | disposition home or self-care (01) | LOC: RPT 15:25 | PROVIDERS: ATTENDING PHYSICIAN Family Medicine | DX: H81.10 Benign paroxysmal vertigo, unspecified ear (principal); H81.11 Benign paroxysmal vertigo, right ear (principal); Z73.6 Limitation of activities due to disability; R26.89 Other abnormalities of gait and mobility | CPT/HCPCS: 97112 ==

== ENCOUNTER → 2025-01-07 15:05 | Outpatient (REF) | payer MEDICARE, SELFPAY | LOC: RAD 15:05 | PROVIDERS: ATTENDING PHYSICIAN Physician Assistant; FAMILY PHYSICIAN Family Medicine | DX: M54.50 Low back pain, unspecified (principal) | CPT/HCPCS: 72110 ==

== ENCOUNTER 2025-01-29 15:01 | Outpatient (RCR) | payer MEDICARE, SELFPAY | END 2025-01-29 23:59 | disposition home or self-care (01) | LOC: RPT 15:01 | PROVIDERS: ATTENDING PHYSICIAN Student in an Organized Health Care Education/Training Program; FAMILY PHYSICIAN Family Medicine | DX: M51.360 Other intervertebral disc degeneration, lumbar region with discogenic back pain only (principal); Z73.6 Limitation of activities due to disability | CPT/HCPCS: 97110; 97162 ==